=== PATIENT | male | born 1940 | race Caucasian/White ===

== ENCOUNTER 2016-12-18 14:50 | Observation (INO) ==
--- NOTE | 2016-12-18 14:58 | Emergency Department Note ---
Disposition Clinical Impression: Metastatic cancer, Hyperkalemia, Acute renal failure Disposition: Admitted As Inpatient Condition: Fair Time of Disposition: 18:00 ([facility] OBS Hospice) Altered Mental Status HPI - General Chief Complaint: ED General Medical Stated Complaint: increased sleeping Time Seen by Provider: 12/18/16 15:15 Source: family, EMS Mode of arrival: EMS Limitations: no limitations Nursing Notes Reviewed: Yes Vital Signs Reviewed: Yes - History of Present Illness HPI Narrative: 76-year-old male with bone cancer who presents to the emergency room his having decreased response he state today family states he has been doubling up on his medications and they state that they were not giving him increasing pain medications patient is not eating or drinking patient recently just [facility] he has had no fevers no chills no noted falls patient complains and cries out with any type of movement or touching of the skin no additional complaints noted or able to be elicited from the patient family state they are concerned because he is not eating or drinking MD complaint: altered mental status Onset (ago): day(s) (1) Timing confirmed by: spouse, family member, other (ems) Consistency of Symptoms: waxing and waning, getting worse Context: other (cancer) Associated symptoms: Reports: loss of appetite (per ), malaise, weakness. Denies: chest pain, cough, diaphoresis, fever, chills, headaches, nausea/ vomiting, shortness of breath, syncope, foul smelling urine, difficulty walking , diarrhea, incontinence - Related Data Home Medications Medication Instructions Recorded Confirmed Albuterol Sulfate [Proair Hfa] 2 puff IH Q4H PRN 03/20/16 12/14/16 Famotidine [Pepcid] 20 mg PO BID 03/20/16 12/14/16 Nebivolol [Bystolic] 5 mg PO DAILY 03/20/16 12/14/16 Simvastatin [Zocor] 40 mg PO HS 03/20/16 12/14/16 TraMADol [Ultram] 50 mg PO TID PRN 03/20/16 12/14/16 Acetaminophen [Tylenol] 650 mg PO BID PRN 12/04/16 12/14/16 Previous Rx's Medication Instructions Recorded Tamsulosin HCl [Flomax] 0.4 mg PO DAILY #30 cap.er.24h 08/13/16 Ipratropium/Albuterol Neb [Duoneb] 3 ml IH Q4HR 60 Days 12/10/16 Lactobacillus [Culturelle] 1 each PO BID #20 cap.sprink 12/10/16 Nicotine Patch [Nicoderm] 21 mg TD DAILY #30 patch.td24 12/10/16 PredniSONE 10 mg PO AD #9 tablet 12/10/16 Furosemide [Lasix] 40 mg PO DAILY #7 tablet 12/14/16 Oxycodone HCl [Oxaydo] 5 mg PO Q4H PRN #42 tablet.orl 12/14/16 Allergies Allergy/AdvReac Type Severity Reaction Status Date / Time codeine AdvReac Vomiting Verified 12/14/16 13:14 Penicillins [PCN] AdvReac Vomiting Verified 12/14/16 13:14 Limitations: ROS unobtainable due to patients medical condition Past Medical History - Past Medical History Source: unable to obtain, obtained from family, nursing notes reviewed Medical history: Reports: arthritis, cancer (-Clear-cell), COPD, GERD, hyperlipidemia, hypertension, renal disease Surgical history: Reports: appendectomy, other Psychiatric history: Reports: no psych history - Social History Smoking Status: Current every day smoker Smokeless Tobacco Status: No Alcohol use: Reports: none Drug use: Reports: none Physical Exam - General Limitations: no limitations, altered mental status General appearance: alert, appears intoxicated, anxious, in distress, obese - Head Head exam: atraumatic, normocephalic, normal inspection - Eye Eye exam: Present: normal appearance, PERRL - ENT ENT exam: normal exam, normal oropharynx, mucous membranes dry, TM's normal bilaterally, normal external ear exam - Neck Neck exam: Present: normal inspection, full ROM, trachea midline - Chest Chest inspection: Present: normal inspection, symmetric chest wall rise - Respiratory Respiratory exam: Present: normal lung sounds bilaterally - Cardiovascular Cardiovascular exam: Present: regular rate, normal rhythm, normal heart sounds - Abdominal Exam Abdominal exam: Present: soft, Non-Tender, hypoactive bowel sounds. Absent: mass, pulsatile mass - Extremities Exam Extremities exam: Present: normal inspection, full ROM, normal capillary refill , other (Diffuse joint pain with any type of movement of the patient within the bed pain with moving at the shoulder elbow and wrist ankle knee and hip patient has discoloration areas on the plantar aspects of the feet he has swelling and edema of the extremities sallow appearance noted to his skin). Absent: tenderness, pedal edema - Expanded Lower Extremity Exam Gait: not tested/not observed - Back Exam Back exam: Present: normal inspection, full ROM, other (Name of any type of movement about the back and flank) - Neurological Exam Neurological exam: Present: alert, CN II-XII intact - Psychiatric Psychiatric exam: Present: agitated, flat affect - Skin Skin exam: Present: warm, dry, intact, other (Sallow) Course Course Narrative: Seen examination initially patient is minimally responsive after return from radiology patient is starting to some increasing response to stimulation patient appears to be very uncomfortable with movement as the patient is monitored while we are waiting for laboratory results to return patient shows increasing improvement which may all be related to medication patient was admitted for observation spoke with family spoke with hospitalist spoke with Dr. Vines transferred to [facility] for IV hydration Vital Signs Temperature 97.5 F L 12/18/16 14:57 Pulse Rate 76 12/18/16 14:57 Respiratory Rate 18 12/18/16 14:57 Blood Pressure 112/51 12/18/16 14:57 O2 Sat by Pulse Oximetry 93 L 12/18/16 14:57 Temperature 98.1 F 12/18/16 19:24 Pulse Rate 82 12/18/16 19:24 Respiratory Rate 20 12/18/16 19:24 Blood Pressure 101/63 12/18/16 19:24 O2 Sat by Pulse Oximetry 95 12/18/16 19:24 Oxygen Delivery Oxygen Delivery Nasal Cannula Altered Mental Status - MDM Narrative Medical decision making narrative: cocerns are related to medication - Differential Diagnosis Likely: altered mental status, delirium, dementia, hyponatremia, substance use - Medical Records Medical records reviewed: Yes I reviewed the patient's medical records. - Lab Data Lab results reviewed: Yes I reviewed the patient's lab results. Result diagrams: 12/18/16 15:13 12/18/16 15:13 Lab Results 12/18/16 12/18/16 12/18/16 Range/Units 15:13 15:13 15:13 WBC 16.2 H (4.3-11.1) K/mcL RBC 3.92 L (4.19-5.50) M/mcL Hgb 12.0 L (12.9-16.9) g/dL Hct 37.1 L (37.5-50.1) % MCV 94.6 (83.0-100.0) fL MCH 30.6 (28.0-33.3) pg MCHC 32.3 (31.6-35.5) g/dL RDW 14.7 H (11.5-14.5) % Plt Count 220 (140-400) K/mcL MPV 11.3 (9.4-12.4) fL Immature Gran % 5.7 H (0-4) % Seg Neutrophils % 86.1 % Lymphocytes % 3.3 % Monocytes % 4.4 % Eosinophils % 0.1 % Basophils % 0.4 % Neutrophils # 14.0 H (1.6-8.9) K/mcL Lymphocytes # 0.5 L (0.6-4.6) K/mcL Monocytes # 0.7 (0.0-1.3) K/mcL Eosinophils # 0.0 (0.0-0.6) K/mcL Basophils # 0.1 (0.0-0.2) K/mcL Nucleated RBCs/100 WBC 0.1 H (0) /100 WBC PT 13.2 H (9.4-12.1) Seconds INR 1.2 APTT 26.7 (26.0-36.0) Seconds Sodium 136 (136-145) mEq/L Potassium 7.3 H* (3.5-4.5) mEq/L Chloride 99 (98-109) mEq/L Carbon Dioxide 13 L (19-29) mEq/L BUN 129 H (8-26) mg/dL Creatinine 5.75 H (0.72-1.25) mg/dL Est GFR ( Amer) 12 L (> 60) Est GFR (Non-Af Amer) 10 L (> 60) BUN/Creatinine Ratio 22 (6-26) Glucose 133 H (70-99) mg/dL Calculated Osmolality 325 H (280-300) Calcium 10.0 (8.6-10.8) mg/dL Total Bilirubin 0.8 (0.2-1.2) mg/dL AST 85 H (5-34) Units/L ALT 89 H (0-55) Units/L Alkaline Phosphatase 282 H (38-126) Units/L Serum Total Protein 7.0 (6.0-8.3) g/dL Albumin 2.3 L (3.5-5.0) g/dL Globulin 4.7 H (2.4-3.5) g/dL Albumin/Globulin Ratio 0.5 L (1.1-2.2) Urine Color (Yellow) Urine Clarity (Clear) Urine pH (5.0-8.0) pH Units Ur Specific Crook (1.010-1.025) Urine Protein (Neg-Trace) mg/dL Urine Glucose (UA) (Normal) mg/dL Urine Ketones (Negative) mg/dL Urine Blood (Negative) Urine Nitrite (Negative) Urine Bilirubin (Negative) Urine Urobilinogen (Normal) mg/dL Ur Leukocyte Esterase (Negative) Urine Microscopic RBC (0-3) per hpf Urine Microscopic WBC (0-3) per hpf Urine Bacteria (None-Few) per hpf Ur Culture Indicated? (NO) Urine Opiates Screen (Vngqzs=101) ng/mL Ur Oxycodone Screen (Cutoff= 100) ng/mL Ur Barbiturates Screen (Jjvfyp=622) ng/mL Ur Phencyclidine Scrn (Cutoff=25) ng/mL Ur Amphetamines Screen (Fqcuou=4180) ng/mL U Benzodiazepines Scrn (Lmlezp=750) ng/mL Urine Cocaine Screen (Cutoff= 300) ng/mL U Marijuana (THC) Screen (Cutoff = 50) ng/mL 12/18/16 12/18/16 Range/Units 17:00 17:00 WBC (4.3-11.1) K/mcL RBC (4.19-5.50) M/mcL Hgb (12.9-16.9) g/dL Hct (37.5-50.1) % MCV (83.0-100.0) fL MCH (28.0-33.3) pg MCHC (31.6-35.5) g/dL RDW (11.5-14.5) % Plt Count (140-400) K/mcL MPV (9.4-12.4) fL Immature Gran % (0-4) % Seg Neutrophils % % Lymphocytes % % Monocytes % % Eosinophils % % Basophils % % Neutrophils # (1.6-8.9) K/mcL Lymphocytes # (0.6-4.6) K/mcL Monocytes # (0.0-1.3) K/mcL Eosinophils # (0.0-0.6) K/mcL Basophils # (0.0-0.2) K/mcL Nucleated RBCs/100 WBC (0) /100 WBC PT (9.4-12.1) Seconds INR APTT (26.0-36.0) Seconds Sodium (136-145) mEq/L Potassium (3.5-4.5) mEq/L Chloride (98-109) mEq/L Carbon Dioxide (19-29) mEq/L BUN (8-26) mg/dL Creatinine (0.72-1.25) mg/dL Est GFR ( Amer) (> 60) Est GFR (Non-Af Amer) (> 60) BUN/Creatinine Ratio (6-26) Glucose (70-99) mg/dL Calculated Osmolality (280-300) Calcium (8.6-10.8) mg/dL Total Bilirubin (0.2-1.2) mg/dL AST (5-34) Units/L ALT (0-55) Units/L Alkaline Phosphatase (38-126) Units/L Serum Total Protein (6.0-8.3) g/dL Albumin (3.5-5.0) g/dL Globulin (2.4-3.5) g/dL Albumin/Globulin Ratio (1.1-2.2) Urine Color Brown (Yellow) Urine Clarity Other A (Clear) Urine pH 5.5 (5.0-8.0) pH Units Ur Specific Crook 1.020 (1.010-1.025) Urine Protein >=300 H (Neg-Trace) mg/dL Urine Glucose (UA) Normal (Normal) mg/dL Urine Ketones Trace H (Negative) mg/dL Urine Blood Large H (Negative) Urine Nitrite Negative (Negative) Urine Bilirubin Large H (Negative) Urine Urobilinogen Normal (Normal) mg/dL Ur Leukocyte Esterase Large H (Negative) Urine Microscopic RBC TNTC H (0-3) per hpf Urine Microscopic WBC 5-15 H (0-3) per hpf Urine Bacteria Few (None-Few) per hpf Ur Culture Indicated? YES A (NO) Urine Opiates Screen Positive H (Dbvjmt=047) ng/mL Ur Oxycodone Screen Positive H (Cutoff= 100) ng/mL Ur Barbiturates Screen Negative (Bosryq=392) ng/mL Ur Phencyclidine Scrn Negative (Cutoff=25) ng/mL Ur Amphetamines Screen Negative (Qlbuur=4197) ng/mL U Benzodiazepines Scrn Negative (Mvhzlo=437) ng/mL Urine Cocaine Screen Negative (Cutoff= 300) ng/mL U Marijuana (THC) Screen Negative (Cutoff = 50) ng/mL - Radiology Data Radiology results reviewed: Yes I reviewed the patient's radiology results. TPA Checklist - LKW: 3-4.5 hrs Add. Contraindications Patient/family understanding: The patient/family members have been counseled and understood the risk, benefit , and alternatives of treatment. Critical Care Time Critical Care Time: Yes Total Critical Care Time: 35 Attestation: Critical care performed:35mins U acute renal failure hyperkalemia leukocytosis urinalysis is pending I spoke with family they want to maintain the DNR status in addition to this with the altered mental status is most slightly secondary to the fact they are still giving him the same present medications with the elevated renal functions and decreased urine output which would then could be building up within his system in addition to this he is also hyperkalemic which cause respiratory cardiac arrhythmia for the patient DNR he is not placed on a monitor on the floor but he will be admitted for IV hydration Kayexalate and limited resuscitative efforts to see if this causes or allows any improvement if no improvement we will still maintain his DNR cease C status but see if this does resolve this acute episode this time Time is exclusive of separately billable procedures. Time includes: direct patient care, patient reassessment, coordination of patient care, interpretation of data (laboratory data, radiology data, and respiratory data), review of patient's medical records, medical consultation and documentation of patient care. Procedures included in critical care time: Procedures excluded from critical care time:
[2016-12-18 15:37] LABS: INR 1.2; Prothrombin Time 13.2 Seconds (9.4-12.1)
[2016-12-18 15:40] LABS: Activated Partial Thrombo Time 26.7 Seconds (26.0-36.0); Basophils # 0.1 K/mcL (0.0-0.2); Basophils % 0.4 %; Eosinophils % 0.1 %; Hematocrit 37.1 % (37.5-50.1); Immature Granulocytes % 5.7 % (0-4); Lymphocytes # 0.5 K/mcL (0.6-4.6); Lymphocytes % 3.3 %; Mean Corpuscular HGB Conc 32.3 g/dL (31.6-35.5); Mean Corpuscular Hemoglobin 30.6 pg (28.0-33.3); Mean Corpuscular Volume 94.6 fL (83.0-100.0); Mean Platelet Volume 11.3 fL (9.4-12.4); Monocytes # 0.7 K/mcL (0.0-1.3); Monocytes % 4.4 %; Nucleated Red Blood Cells 0.1 /100 WBC (0); Platelet Count 220 K/mcL (140-400); Red Blood Count 3.92 M/mcL (4.19-5.50); Red Cell Distribution Width 14.7 % (11.5-14.5); Segmented Neutrophils % 86.1 %
[2016-12-18 15:57] LABS: Albumin 2.3 g/dL (3.5-5.0); Albumin/Globulin Ratio 0.5 (1.1-2.2); Bilirubin,Total 0.8 mg/dL (0.2-1.2); Globulin 4.7 g/dL (2.4-3.5)
[2016-12-18 15:59] LABS: Potassium 7.3 mEq/L (3.5-4.5)
[2016-12-18] MEDS ORDERED: *HR* Dextrose 50 % in Water (Syg) 50 ML SYRINGE IVP ONE (15:59)
[2016-12-18] MEDS ORDERED: Insulin Regular, Human 100 UNIT/ML IV ONE (15:59)
[2016-12-18] MEDS ORDERED: 0.9 % Sodium Chloride 1,000 ML IVC ONE (16:02)
[2016-12-18 17:04] LABS: Bilirubin,Urine Large (Negative); Blood,Urine Large (Negative); Clarity,Urine Other (Clear); Color,Urine Brown (Yellow); Glucose,Urine (UA) Normal (Normal); Ketones,Urine Trace mg/dL (Negative); Leukocyte Esterase,Urine Large (Negative); Nitrite,Urine Negative (Negative); PH,Urine 5.5 pH Units (5.0-8.0); Protein,Urine >=300 mg/dL (Neg-Trace); Urobilinogen,Urine Normal (Normal)
[2016-12-18 17:23] LABS: RBC,Urine TNTC per hpf (0-3)
[2016-12-18 17:25] LABS: Bacteria,Urine Few per hpf (None-Few)
[2016-12-18 17:58] LABS: Amphetamine Screen,Urine Negative ng/mL (Cutoff=1000); Barbiturate Screen,Urine Negative ng/mL (Cutoff=200); Benzodiazepines Screen,Urine Negative ng/mL (Cutoff=200); Cannabinoid Screen,Urine Negative ng/mL (Cutoff = 50); Cocaine Screen,Urine Negative ng/mL (Cutoff= 300); Opiate Screen,Urine Positive ng/mL (Cutoff=300); Phencyclidine Screen,Urine Negative ng/mL (Cutoff=25)
[2016-12-18] MEDS ORDERED: CefTRIAXone 1,000 MG in D5% in Water (Mini-Bag+) 100 ML IVPB ONE ×2 (18:01→18:30)
[2016-12-18] MEDS ORDERED: *HR* OxyCODONE Immed Rel 5 MG TABLET PO PRN (18:30)
[2016-12-18] MEDS ORDERED: Ondansetron 4 MG/2 ML VIAL IVP PRN (18:30)
[2016-12-18] MEDS ORDERED: Naloxone 0.4 MG/ML INJ IVP PRN (18:30)
[2016-12-18] MEDS ORDERED: Ondansetron ODT 4 MG TAB.RAPDIS SL PRN (18:30)
[2016-12-18] MEDS ORDERED: Acetaminophen 325 MG TABLET PO PRN (18:30)
[2016-12-18] MEDS ORDERED: *HR* Morphine 2 MG/ML SYRINGE IVP PRN (18:30)
[2016-12-18] MEDS: 0.9 % Sodium Chloride 1,000 ML IVC SCH (19:18)
[2016-12-18] MEDS: Ipratropium/Albuterol Neb 3 ML IH SCH (20:42)
[2016-12-18] MEDS ORDERED: Famotidine 20 MG TABLET PO SCH (21:00)
[2016-12-18] MEDS: PredniSONE 10 MG TABLET PO SCH (21:30)
[2016-12-18] MEDS: Lactobacillus 1 EACH CAP.SPRINK PO SCH (21:30)
[2016-12-19] MEDS: Ipratropium/Albuterol Neb 3 ML IH SCH ×4 (00:37→12:52)
[2016-12-19] MEDS: 0.9 % Sodium Chloride 1,000 ML IVC SCH ×2 (03:05→11:18)
[2016-12-19] MEDS ORDERED: *HR* LORazepam 2 MG/ML VIAL IVP PRN ×2 (03:32→12:46)
[2016-12-19 07:43] LABS: Basophils % 0.2 %; Eosinophils % 0.1 %; Hemoglobin 11.6 g/dL (12.9-16.9); Immature Granulocytes % 3.3 % (0-4); Lymphocytes # 0.7 K/mcL (0.6-4.6); Lymphocytes % 4.4 %; Mean Corpuscular HGB Conc 33.1 g/dL (31.6-35.5); Mean Corpuscular Hemoglobin 32.1 pg (28.0-33.3); Mean Platelet Volume 11.3 fL (9.4-12.4); Monocytes # 1.4 K/mcL (0.0-1.3); Neutrophils # 13.3 K/mcL (1.6-8.9); Platelet Count 187 K/mcL (140-400); Red Blood Count 3.61 M/mcL (4.19-5.50); Red Cell Distribution Width 14.8 % (11.5-14.5)
[2016-12-19] MEDS ORDERED: Nicotine 21 MG PATCH.TD24 TD SCH (09:00)
[2016-12-19 09:08] LABS: Albumin 2.1 g/dL (3.5-5.0); Albumin/Globulin Ratio 0.5 (1.1-2.2); Bilirubin,Total 0.5 mg/dL (0.2-1.2); Calcium 9.5 mg/dL (8.6-10.8); Globulin 4.1 g/dL (2.4-3.5); Potassium 6.3 mEq/L (3.5-4.5); Total Protein 6.2 g/dL (6.0-8.3)
[2016-12-19] MEDS: PredniSONE 10 MG TABLET PO SCH (10:19)
[2016-12-19] MEDS: Lactobacillus 1 EACH CAP.SPRINK PO SCH (10:19)
--- NOTE | 2016-12-19 12:33 | Internal Med History&Physical ---
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 He also has a primary bladder cancer and possibly a third primary malignancy in the lungs. I spoke at length with his daughter who has confirmed family's wish for comfort measures only. She wishes him to be changed to inpatient hospice. Anticipated survival of 3 days or less. Internal Medicine - H&P: HPI Chief complaint: Lethargy Admitted From: Home Plans for Post Hospital Care: Hospice - Medical Facility History of present illness: Mr. Sosa is a 76 year old male who was brought to emergency room after family reported he was lethargic possibly from analgesic administration. He had been added to hospice the previous day after being diagnosed with widely metastasized renal cell carcinoma last week during an [facility] hospitalization. He was also found to have primary bladder cancer causing gross hematuria during the [facility] stay. His daughter who supplies history reports there may have been a third primary malignancy discovered in the lungs. The patient has not been unable to interact with his family for the past few days. Family agreed he was hospice appropriate and he was admitted but became unresponsive and was brought to the emergency room. He was found to have significant lab abnormalities and obtundation. He was admitted observation until further disposition could be determined. Past Med Surg Social Fam HX - Past Medical History Medical history: arthritis, cancer (-Clear-cell), COPD, GERD, hyperlipidemia, hypertension, renal disease Psychiatric history: no psych history - Past Surgical History Surgical History: appendectomy, other - Social History Smoking Status: Current every day smoker Smokeless Tobacco Status: No Alcohol use: none Drug use: none - Family History Mother Living Status: Hx Family Cardiac Disorders: Yes Hx Family Respiratory Disorders: Yes (COPD) Hx Family Cancer: Yes (Lung) Hx Family GI Disorders: No Hx Family Endocrine Disorder: No Hx Family Neuromuscular Disorders: No Hx Family Neurologic Disorders: No Hx Family HEENT Disorders: No Hx Family Autoimmune Disorders: No Internal Medicine - H&P: Meds Albuterol Sulfate [Proair Hfa] 2 puff IH Q4H PRN 03/20/16 [History] Famotidine [Pepcid] 20 mg PO BID 03/20/16 [History] Nebivolol [Bystolic] 5 mg PO DAILY 03/20/16 [History] Simvastatin [Zocor] 40 mg PO HS 03/20/16 [History] TraMADol [Ultram] 50 mg PO TID PRN 03/20/16 [History] Tamsulosin HCl [Flomax] 0.4 mg PO DAILY #30 cap.er.24h 08/13/16 [Rx] Acetaminophen [Tylenol] 650 mg PO BID PRN 12/04/16 [History] Ipratropium/Albuterol Neb [Duoneb] 3 ml IH Q4HR 60 Days 12/10/16 [Rx] Lactobacillus [Culturelle] 1 each PO BID #20 cap.sprink 12/10/16 [Rx] Nicotine Patch [Nicoderm] 21 mg TD DAILY #30 patch.td24 12/10/16 [Rx] PredniSONE 10 mg PO AD #9 tablet 12/10/16 [Rx] Furosemide [Lasix] 40 mg PO DAILY #7 tablet 12/14/16 [Rx] Oxycodone HCl [Oxaydo] 5 mg PO Q4H PRN #42 tablet.orl 12/14/16 [Rx] Allergies codeine Adverse Reaction (Verified 12/14/16 13:14) Vomiting Penicillins [PCN] Adverse Reaction (Verified 12/14/16 13:14) Vomiting All Systems PM: A 10-system review of systems was performed and is negative for pertinent findings except as documented above in the HPI. Review of systems: Unobtainable from the patient because of obtundation. [facility] records were reviewed. - Constitutional Vitals: Temp Pulse Resp BP Pulse Ox 98.5 F 91 20 89/58 93 L 12/19/16 09:41 12/19/16 09:41 12/19/16 09:41 12/19/16 09:41 12/19/16 09:41 Exam: Gen.: He is a well-developed overweight male lying in bed who is agitated and somewhat uncooperative HEENT: Head is atraumatic and normal cephalic. Eyes: He does not open his eyes well for examination. His gaze appears to be conjugate. Mouth: He does not open his mouth for examination Neck: There is no thyromegaly or adenopathy noted. Heart: Regular without murmurs gallops or ectopics Lungs: No wheezes or crackles are heard on limited examination Abdomen: He does not allow adequate examination. The abdomen appears to be soft and nontender. Extremities: He has elastic wrap on his feet and lower legs bilaterally. There is 1-2+ edema above the elastic wrap proximally. He has minimal DJD changes of his hands. Neurologic: Mental status: He does not really attempt to answer questions. He is not very cooperative. Cranial nerves: His facial movements are minimal but appear to be symmetric. His gaze appears to be conjugate. Motor: He moves his arms well randomly. No further neurologic testing is attempted. Skin: Warm and dry. Internal Med - H&P Results - Labs CBC & Chem 7: 12/19/16 06:58 12/19/16 06:58 Labs: Short CBC 12/19/16 Range/Units 06:58 WBC 16.0 H (4.3-11.1) K/mcL Hgb 11.6 L (12.9-16.9) g/dL Hct 35.0 L (37.5-50.1) % Plt Count 187 (140-400) K/mcL Neutrophils # 13.3 H (1.6-8.9) K/mcL BMP 12/19/16 06:58 Sodium 139 Potassium 6.3 H D Chloride 108 Carbon Dioxide 13 L BUN 127 H Creatinine 4.20 H Glucose 102 H Calcium 9.5 Liver Function 12/19/16 Range/Units 06:58 Total Bilirubin 0.5 (0.2-1.2) mg/dL AST 132 H (5-34) Units/L ALT 107 H (0-55) Units/L Alkaline Phosphatase 298 H (38-126) Units/L Albumin 2.1 L (3.5-5.0) g/dL
[2016-12-19] MEDS ORDERED: *HR* Morphine 2 MG/ML SYRINGE IVP PRN (12:47)
--- NOTE | 2016-12-19 14:56 | Discharge Summary ---
Date of Encounter: 12/19/16 Time of Encounter: 11:35 - Discharge Diagnosis (1) Metastatic cancer Priority: Primary Status: Acute - Discharge Medications Prescriptions: LORazepam Oral Conc [Ativan Oral Conc] 2 mg PO Q2H PRN #120 mls PRN Reason: Agitation Morphine Oral CONC [Roxanol] 5 mg PO Q1H PRN #120 ml PRN Reason: Pain Home Medications: Nicotine Patch [Nicoderm] 21 mg TD DAILY #30 patch.td24 12/10/16 [Rx] LORazepam Oral Conc [Ativan Oral Conc] 2 mg PO Q2H PRN #120 mls 12/19/16 [Rx] Morphine Oral CONC [Roxanol] 5 mg PO Q1H PRN #120 ml 12/19/16 [Rx] Allergies/Adverse Reactions: Allergies codeine Adverse Reaction (Verified 12/14/16 13:14) Vomiting Penicillins [PCN] Adverse Reaction (Verified 12/14/16 13:14) Vomiting Date of admission: 12/18/16 17:59 Primary care physician: PCP NO - Patient Status Disposition: Hospice - Medical Facility Condition: Fair - Discharge Instructions Hospital course: Mr. Sosa is a 76 year old male who was brought to emergency room after family reported he was lethargic possibly from analgesic administration. He had been added to hospice the previous day after being diagnosed with widely metastasized renal cell carcinoma last week during an [facility] hospitalization. He was also found to have primary bladder cancer causing gross hematuria during the [facility] stay. His daughter who supplies history reports there may have been a third primary malignancy discovered in the lungs. The patient has not been unable to interact with his family for the past few days. Family agreed he was hospice appropriate and he was admitted but became unresponsive and was brought to the emergency room. He was found to have significant lab abnormalities and obtundation. He was admitted observation until further disposition could be determined. Initial orders were written by the emergency room physician. I saw him on December 19 and performed the history and physical. I spoke at length with his daughter and she confirmed the family's request was that a nonaggressive approach be taken. She wished him to be changed to [facility] [employer] and discontinue aggressive therapy. I felt this was appropriate. He will be discharged to inpatient hospice. Expected length of survival is 3 days or less - Time Spent with Patient Total time spent providing and/or coordinating discharge services: - Constitutional Vitals: Temp Pulse Resp BP Pulse Ox 98.6 F 91 24 85/61 93 L 12/19/16 13:16 12/19/16 13:16 12/19/16 13:16 12/19/16 13:16 12/19/16 13:16
[2016-12-19 16:02] VITALS: BP 102/66
== END 2016-12-19 18:10 | disposition hospice, inpatient (51) ==
LOC: EMEROOPIK 14:50 → INPPIK 14:50
PROVIDERS: ADMIT Internal Medicine; ATTEND Internal Medicine

== ENCOUNTER 2016-12-19 18:20 | Inpatient (IN) ==
[2016-12-19] MEDS ORDERED: Acetaminophen 650 MG RECTAL SUPP RC PRN (18:57)
[2016-12-19] MEDS ORDERED: Hyoscyamine SL 0.125 MG TAB.SUBL SL PRN (19:04)
[2016-12-19] MEDS: Morphine Oral CONC 5 MG/0.25 ML ORAL.SYG PO PRN ×4 (20:00→23:33)
[2016-12-19] MEDS: *HR* LORazepam Oral Conc 2 MG/ML PO PRN ×2 (20:05→22:16)
[2016-12-20] MEDS: *HR* LORazepam Oral Conc 2 MG/ML PO PRN ×3 (01:02→12:48)
[2016-12-20] MEDS: Morphine Oral CONC 5 MG/0.25 ML ORAL.SYG PO PRN ×6 (01:02→15:14)
[2016-12-20] MEDS ORDERED: Morphine Oral CONC 5 MG/0.25 ML ORAL.SYG PO STA (01:12)
[2016-12-20 07:34] VITALS: BP 68/42
[2016-12-20] MEDS ORDERED: Nicotine 21 MG PATCH.TD24 TD SCH (09:00)
--- NOTE | 2016-12-20 14:16 | Internal Med Progress Note ---
Date of Encounter: 12/20/16 Time of Encounter: 14:00 - Assessment and plan (1) Metastatic cancer Current Visit: No Status: Acute Assessment and plan: December 20. Continue hospice services. Doubt survival past midnight - Subjective Interval history: He was admitted to inpatient hospice at [facility] after an observation stay December 18 after presenting to ER with obtundation. He has widespread metastatic disease from presumed renal cell carcinoma. He also has primary bladder cancer and possibly an additional primary lung cancer. - Constitutional Vitals: Temp Pulse Resp BP Pulse Ox 98.8 F 91 32 68/42 90 L 12/20/16 07:25 12/20/16 07:25 12/20/16 07:25 12/20/16 07:25 12/20/16 09:37 Exam: He is lying in bed and appears to be without pain. He has tachypnea. He is warm to touch. Heart tones could not be auscultated because of widespread rhonchi. Pulse could not be palpated at the left radius or left brachial artery. Consult Discharge Plan - Plan Referrals: Raghavendra Vines MD [Primary Care Provider] - 1 week
--- NOTE | 2016-12-20 19:05 | Discharge Summary ---
Date of Encounter: 12/20/16 Time of Encounter: 19:03 - Discharge Diagnosis (1) Metastatic cancer Priority: Primary Status: Acute - Discharge Medications Home Medications: Nicotine Patch [Nicoderm] 21 mg TD DAILY #30 patch.td24 12/10/16 [Rx] LORazepam Oral Conc [Ativan Oral Conc] 2 mg PO Q2H PRN #120 mls 12/19/16 [Rx] Morphine Oral CONC [Roxanol] 5 mg PO Q1H PRN #120 ml 12/19/16 [Rx] Allergies/Adverse Reactions: Allergies codeine Adverse Reaction (Verified 12/14/16 13:14) Vomiting Penicillins [PCN] Adverse Reaction (Verified 12/14/16 13:14) Vomiting Date of admission: 12/19/16 18:51 Primary care physician: Raghavendra Vines MD Consults: 12/19/16 18:57 Consult to Palliative Care [CONS] Routine Comment: Consulting Provider: Palliative Care Corie - Patient Status Disposition: Condition: Undetermined - Discharge Instructions Follow Up With: Raghavendra Vines MD [Primary Care Provider] - 1 week Hospital course: Mr. Sosa is a 76 year old male who was admitted to inpatient hospice at [facility] after an observation stay December 18 after presenting to ER with obtundation. He has widespread metastatic disease from presumed renal cell carcinoma. He also has primary bladder cancer and possibly an additional primary lung cancer. He was discharged to inpatient hospice the afternoon of December 19. Comfort measures were given. His blood pressure remained low and continue to decline during the hours of inpatient hospice stay. At 1538 on December 20 he was found without pulse or respirations and was pronounced . His body was released to the home. - Time Spent with Patient Total time spent providing and/or coordinating discharge services: - Constitutional Vitals: Temp Pulse Resp BP Pulse Ox 98.8 F 91 32 68/42 90 L 12/20/16 07:25 12/20/16 07:25 12/20/16 07:25 12/20/16 07:25 12/20/16 09:37
== END 2016-12-20 15:37 | disposition expired | DRG 845 ==
LOC: INPPIK 18:51
PROVIDERS: ADMIT Internal Medicine; ATTEND Internal Medicine